=== PATIENT | male | born 1985 | race Two or more races ===

== ENCOUNTER 2019-03-28 21:03 | Emergency (ER) | payer MEDICAID ==
[~2019-03-28] VITALS: Ht 170.2 cm; Wt 76.2 kg
[2019-03-28] MEDS ORDERED: TETRACAINE HCL 0.5% OPTH(EYE) SOLN 4ML RIGHTEYE ONE (21:45)
[2019-03-28] MEDS ORDERED: FLUORESCEIN SOD 1 MG TEST STRIP RIGHTEYE ONE (21:45)
[2019-03-28 21:52] VITALS: BP 130/86
== END 2019-03-28 22:40 | disposition home or self-care (01) ==
LOC: ER 21:06
DX: S05.01XA Injury of conjunctiva and corneal abrasion without foreign body, right eye, initial encounter (principal); F17.210 Nicotine dependence, cigarettes, uncomplicated; F15.10 Other stimulant abuse, uncomplicated; W27.8XXA Contact with other nonpowered hand tool, initial encounter; Y93.89 Activity, other specified; Y92.89 Other specified places as the place of occurrence of the external cause; Y99.8 Other external cause status

== ENCOUNTER 2022-05-05 20:49 | Emergency (ER) | payer MEDICAID ==
[~2022-05-05] VITALS: Ht 170.2 cm; Wt 75.0 kg
[2022-05-06 00:18] VITALS: BP 134/92
== END 2022-05-06 01:12 | disposition left against medical advice (07) ==
LOC: ER 20:52
DX: S43.101A Unspecified dislocation of right acromioclavicular joint, initial encounter (principal); S20.211A Contusion of right front wall of thorax, initial encounter; F15.10 Other stimulant abuse, uncomplicated; F17.210 Nicotine dependence, cigarettes, uncomplicated; Z53.29 Procedure and treatment not carried out because of patient's decision for other reasons; W11.XXXA Fall on and from ladder, initial encounter; Y93.89 Activity, other specified; Y92.89 Other specified places as the place of occurrence of the external cause; Y99.8 Other external cause status
CPT/HCPCS: 71045; 71250; 73200

== ENCOUNTER 2024-08-31 00:14 | Emergency (ER) | payer SELFPAY ==
[~2024-08-31] VITALS: Ht 170.2 cm; Wt 101.0 kg
[2024-08-31 00:50] VITALS: BP 128/89; PULSE 90; RESP 18; TEMP 97.9; O2SAT 99
[2024-08-31] MEDS ORDERED: CEPH500C PO (00:53)
--- NOTE | 2024-08-31 00:53 | ED.PDOC ---
HPI Comments 39-YEAR-OLD MALE PRESENTS TO ER WITH COMPLAINTS OF LACERATION TO LEFT 3RD FINGER THAT OCCURRED TWO DAYS AGO. PATIENT REPORTS THAT HE SUSTAINED A LACERATION TO LEFT 3RD FINGER TWO DAYS AGO S/P A PIECE OF BROKEN GLASS MAKING IMPACT WITH HIS LEFT 3RD FINGER WHILE REACHING HIS LEFT HAND INTO SOAPY SINK WATER. HE REPORTS 8/10 PAIN TO LEFT 3RD FINGER WITHOUT RADIATION. DENIES USE OF MEDICATIONS FOR CURRENT SYMPTOMS AND STATES HE IS UP-TO-DATE ON HIS TETANUS SHOT. PATIENT PRESENTS TO ER WITH A HEALING 2 CM ABRASION NOTED TO LEFT 3RD FINGER WITHOUT BLEEDING/DRAINAGE/FOREIGN BODY APPRECIATED. DENIES ANY FURTHER SYMPTOMS/COMPLAINTS Chief Complaint: Laceration Time Seen by MD: 00:38 Primary Care Provider: UNK Reviewed Notes: Nurses Notes, Medications, Allergies Allergies: Coded Allergies: NO KNOWN ALLERGIES (Unverified , 03/28/19) Home Meds Active Scripts Cephalexin Monohydrate (Cephalexin) 500 Mg Cap, 1 CAP PO BID for 7 Days, #14 CAP 0 Refills Prov:JULIAN CARDONA 08/31/24 Information Source: Patient Mode of Arrival: Ambulatory Complexity: Simple Laceration Length (cm): 2 Skin Type: Linear (ABRASION) Past Medical History PAST MEDICAL HISTORY: Denies Surgical History: Denies all surgeries Family History Family History: Unknown Social History Smoker: Cigarettes, Less Than 1 Pack/Day Alcohol: Occasionally Drugs: Denies Drug Use Lives In: Home Constitutional: denies: chills, diaphoresis, fatigue, fever, malaise, sweats, weakness, others EENTM: denies: blurred vision, double vision, ear bleeding, ear discharge, ear drainage, ear pain, ear ringing, eye pain, eye redness, hearing loss, mouth pain, mouth swelling, nasal discharge, nose bleeding, nose congestion, nose pain, photophobia, tearing, throat pain, throat swelling, voice changes, others Respiratory: denies: cough, hemoptysis, orthopnea, SOB at rest, shortness of breath, SOB with excertion, stridor, wheezing, others Cardiovascular: denies: chest pain, dizzy spells, diaphoresis, Dyspnea on exertion, edema, irregular heart beat, left arm pain, lightheadedness, palpitations, PND, syncope, others Gastrointestinal: denies: abdomen distended, abdominal pain, blood streaked bowels, constipated, diarrhea, dysphagia, difficulty swallowing, hematemesis, melena, nausea, poor appetite, poor fluid intake, rectal bleeding, rectal pain, vomiting, others Genitourinary: denies: burning, dysuria, flank pain, frequency, hematuria, incontinence, penile discharge, penile sore, pain, testicle pain, testicle swelling, urgency, others Neurological: denies: dizziness, fainting, headache, left sided numbness, left sided weakness, numbness, paresthesia, pre-existing deficit, right sided numbness, right sided weakness, seizure, speech problems, tingling, tremors, weakness, others Musculoskeletal: denies: back pain, gout, joint pain, joint swelling, muscle pain, muscle stiffness, neck pain, others Integumetry: reports: others ( STATED IN HPI) Allergic/Immunocompromised: denies: Difficulty Healing, Frequent Infections, Hives, Itching, others Hematologic/Lymphatic: denies: anemia, blood clots, easy bleeding, easy bru ising, swollen glands, others Endocrine: denies: excessive hunger, excessive sweating, excessive thirst, e xcessive urination, flushing, intolerance to cold, intolerance to heat, unexplained weight gain, unexplained weight loss, others Psychiatric: denies: anxiety, bipolar disorder, depression, hopeless, panic disorder, schizophrenia, sleepless, suicidal, others Physical Exam General Appearance: No Apparent Distress HEENT: NOT DONE Neck: Full Range of Motion, Non-Tender, Normal Respiratory: Chest Non-Tender, Lungs Clear, No Accessory Muscle Use, No Respiratory Distress, Normal Breath Sounds Cardiovascular: No Murmur, No Gallop, Regular Rate/Rhythm Breast Exam: Deferred Gastrointestinal: NOT DONE Genitalia: Deferred Pelvic: Deferred Rectal: Deferred Extremities: Normal capillary refill, Normal range of motion Neurologic: Alert, No Motor Deficits, Normal Affect, Normal Mood, No Sensory Deficits Cerebellar Function: Normal Reflexes: Normal Skin: Dry, Warm, Other (HEALING 2 CM ABRASION NOTED TO LEFT 3RD FINGER WITHOUT BLEEDING/DRAINAGE/FOREIGN BODY APPRECIATED. NO LACERATION NOTED. PATIENT ABLE TO FULLY MOVE ALL FINGERS OF LEFT HAND) Peripheral Pulses: 2+ Radial (R), 2+ Radial (L), 2+ Brachial (R), 2+ Brachial (L) Lymphatic: No Adenopathy Was a procedure done? Was a procedure done?: No Sedation Sedation?: No Differential diagnosis Generic Laceration: Fracture, Retained Foriegn Body, Neurovascular Injury, Laceration X-Ray, Labs, Meds, VS Vital Signs Date Time Temp Pulse Resp B/P (MAP) Pulse Ox O2 Delivery O2 Flow Rate FiO2 08/31/24 00:50 97.9 90 18 128/89 (102) 99 97.9 08/31/24 00:50 Room Air* 0 21 08/31/24 00:20 97.9 90 18 128/89 (102) 99 97.9 ADVISED TO FOLLOW UP WITH PCP IN 1-2 DAYS PATIENT VERBALIZED UNDERSTANDING AND AGREEABLE WITH CURRENT PLAN OF CARE ADVISED TO RETURN TO ER IMMEDIATELY IF SYMPTOMS WORSEN Time of 1ST Reevaluation: 00:34 Reevaluation 1ST: N/A Patient Education/Counseling: Diagnosis, Treatment, Prognosis, Need For Follow Up Family Education/Counseling: No Family Present Departure 1 Departure Time of Disposition: 00:50 Impression: Primary Impression: Abrasion of finger of left hand Qualified Codes: S60.419A - Abrasion of unspecified finger, initial encounter Additional Impression: Visit for wound check Disposition: 01 HOME / SELF CARE / HOMELESS Condition: Stable e-Prescriptions Cephalexin Monohydrate (Cephalexin) 500 Mg Cap 1 CAP PO BID for 7 Days, #14 CAP 0 Refills Prov: JULIAN CARDONA 08/31/24 Discharged With: Self Critical Care Note Critical Care Time?: No Stability Stability form required: No Heart Score Heart Score: Heart Score Response (Comments) Value History N/A 0 EKG N/A 0 Age N/A 0 Risk Factors N/A 0 Troponin N/A 0 Total 0 JULIAN CARDONA Aug 31, 2024 00:53
== END 2024-08-31 00:57 | disposition home or self-care (01) ==
LOC: ER 00:14
DX: S60.413A Abrasion of left middle finger, initial encounter (principal); F17.210 Nicotine dependence, cigarettes, uncomplicated; Z79.899 Other long term (current) drug therapy; W25.XXXA Contact with sharp glass, initial encounter; Y93.89 Activity, other specified; Y92.89 Other specified places as the place of occurrence of the external cause; Y99.8 Other external cause status